=== PATIENT | female | born 1995 | race Asian ===

== ENCOUNTER 2020-08-17 05:45 | Outpatient (CLI) | payer OTHER, SELFPAY | END 2020-08-17 06:26 | disposition home or self-care (01) | LOC: LABOR 06:19 → OB 08-18 07:16 | PROVIDERS: Referring Provider Nurse Practitioner Obstetrics & Gynecology; Visit Provider Nurse Practitioner Obstetrics & Gynecology | DX: O20.9 Hemorrhage in early pregnancy, unspecified (principal); O24.414 Gestational diabetes mellitus in pregnancy, insulin controlled; Z3A.18 18 weeks gestation of pregnancy | CPT/HCPCS: G0378; G0379 ==

== ENCOUNTER 2020-10-18 15:58 | Outpatient (CLI) | payer OTHER, SELFPAY ==
--- NOTE | 2020-10-18 17:41 | P.TNLD_ITS ---
Visit Information Visit Information Date of evaluation: 10/18/20 On-call OB Provider: Abbi Velazquez Reason for Evaluation: Yes other Comments/Additional reasons for admission: Bleeding at 27week 5days. Review of Systems Review of Systems Narrative: Patient states that she has been having spotting since 20 weeks after intercourse. Her has been deployed now for 2 weeks and she began having spotting and a little more blood when she wiped today after urinating. She comes in for evaluation. She denies any abdominal pain. No fevers. Good movement. No contractions. Patient is a diabetic on insulin and metformin. She gets her care at [facility]. Exam Vital Signs (past 8 hours): Blood pressure 110/74, pulse of 100, Narrative Exam Narrative: Patient's abdomen is soft, nontender. Normal external genital. Speculum shows normal vagina with a marsh discharge that has an odor. Cervix is friable. Cervix appears closed. On vaginal exam the cervix appears to be firm, long, presenting part is high. Exam was performed after confirming by prior ultrasound obtained from her OB clinic that she does not have a previa. On wet prep and BOUCHRA there are no yeast but obvious clue cells. The odor also confirms she has BV. Evaluation Evaluation Baseline heart rate: 155 Variability: Average (6-10) monitor accelerations: Absent Monitor Decelerations: Absent Contraction Frequency (minutes): 0 Status: Category l Cervical dilation (cm): 0 Cervical effacement (%): 0 station: -4 Diagnosis, Plan/Disposition Final Diagnosis (1) Bacterial vaginosis: Status: Acute (2) 29 weeks gestation of : Status: Acute Plan/Disposition Plan: Patient with vaginal bleeding appears to be from cervical irritation from bacterial vaginosis. Prescription for Flagyl sent to her pharmacy. Patient is to follow-up with her primary OB provider. OB Disposition: home
== END 2020-10-18 17:45 | disposition home or self-care (01) ==
LOC: LABOR 17:40 → OB 10-20 10:37
PROVIDERS: Referring Provider Specialist; Visit Provider Specialist
DX: O26.852 Spotting complicating pregnancy, second trimester (principal); O23.593 Infection of other part of genital tract in pregnancy, third trimester; Z3A.29 29 weeks gestation of pregnancy
CPT/HCPCS: 59025; G0378; G0379

== ENCOUNTER 2021-01-18 23:12 | Inpatient (IN) | payer OTHER, SELFPAY ==
--- NOTE | 2021-01-18 23:31 | DI.US.S_ITS ---
PROCEDURE: US PELVIC COMPLETE INDICATIONS: PAIN, SEPSIS 2 WEEKS POST TECHNIQUE: Real-time scanning was performed of the pelvic organs, with image documentation. Additional endovaginal scanning was necessary due to incomplete visualization of the adnexal and endometrial structures by transabdominal scanning. COMPARISON: None. FINDINGS: Uterus: Uterus is anteverted and measures 11.5 x 5.2 x 9.1 cm. There is a small amount of endometrial fluid with internal echoes demonstrated. No discrete internal solid component or vascularity demonstrated within the endometrial canal. The endometrial contours appear slightly lobulated. Ovaries: The right ovary measures 3.6 x 1.6 x 1.7 cm. The left ovary was not visualized. No adnexal masses identified. Other: A small amount of free fluid is demonstrated in the pelvis which appears within physiologic limits. IMPRESSION: 1. Small amount of endometrial fluid with internal echoes demonstrated as well as a slightly lobulated appearance of the endometrial contours. The findings are nonspecific and are suggestive of blood products, but the differential includes endometritis. Although no discrete solid filling defects or vascularity are demonstrated in the endometrium, retained products of conception cannot be excluded. Dictated by: Prashant Rangel M.D. on 01/19/2021 at 8:50 Approved by: Prashant Rangel M.D. on 01/19/2021 at 8:55
[2021-01-18 23:32] VITALS: BP 116/55; PULSE 82; RESP 17; TEMP 38.5; O2SAT 97; BMI 34.9
--- NOTE | 2021-01-18 23:32 | DI.RAD.S_ITS ---
PROCEDURE: XR CHEST 1V INDICATIONS: cough, fever TECHNIQUE: One view of the chest was acquired. COMPARISON: None. FINDINGS: Surgical changes and devices: None. Lungs and pleura: There are ill-defined patchy ground-glass opacities within the lung bases, left greater than right. There is possible blunting of the left costophrenic angle which may represent a small pleural effusion versus pleural thickening. No pneumothorax. Mediastinum: Mediastinal contours appear normal. Heart size is normal. Bones and chest wall: No suspicious bony lesions. Overlying soft tissues appear unremarkable. IMPRESSION: 1. Patchy indistinct ground-glass opacities in the lung bases, left greater than right. Findings are nonspecific but suggestive of atypical pneumonia. Dictated by: Prashant Rangel M.D. on 01/19/2021 at 8:48 Approved by: Prashant Rangel M.D. on 01/19/2021 at 8:50
[2021-01-18 23:48] VITALS: PULSE 69; O2SAT 97
[2021-01-19] VITALS (16 sets, daily range): BP systolic 117–133; BP diastolic 61–71; PULSE 69–88; RESP 16–30; TEMP 35.8–37.7; O2SAT 96–98; BMI 34.9
[2021-01-19 00:04] LABS: COVID19 -Nasal RAPID Negative (Negative)
[2021-01-19 00:23] LABS: Lactate (Lactic Acid) 0.8 mmol/L (0.7-2.1)
[2021-01-19 00:24] LABS: Alanine Aminotransferase 29 IU/L (<35); Albumin Globulin Ratio 0.9 (1.0-2.8); Alkaline Phosphatase 103 U/L (38-126); Aspartate Aminotransferase 22 IU/L (14-36); BUN Creatinine Ratio 18.8 (6-22); Bilirubin Total 0.5 mg/dL (0.2-1.3); Blood Urea Nitrogen 12 mg/dL (7-17); Calcium 8.2 mg/dL (8.4-10.2); Carbon Dioxide 22 mmol/L (22-32); Chloride 107 mmol/L (98-107); Estimated Glomerular Filt Rate > 60.0 mL/min (>60); Globulin 3.2 g/dL (1.7-4.1); Glucose 110 mg/dL (70-100); HEMOLYSIS < 15 (0-50); Potassium 2.8 mmol/L (3.4-5.1); Sodium 138 mmol/L (137-145); Total Protein 6.2 g/dL (6.3-8.2)
[2021-01-19 00:28] LABS: Add Manual Diff / Slide Review NO; Basophils Absolute Auto 100 /uL (0-100); Basophils Percent Auto 0.2 % (0-2); Eosinophils Absolute Auto 700 /uL (0-450); Eosinophils Percent Auto 3.2 % (2-4); Hematocrit 31.2 % (36-46); Hemoglobin 9.9 g/dL (12.0-16.0); Lymphocytes Absolute Auto 1300 /uL (1100-4500); Lymphocytes Percent Auto 5.8 % (25-40); Mean Corpuscular HGB Conc 31.7 % (30-36); Mean Corpuscular Hemoglobin 27.7 PG (26-34); Mean Corpuscular Volume 87.2 fL (80-100); Monocytes Absolute Auto 700 /uL (0-900); Neutrophils Absolute Auto 20200 /uL (1500-7000); Neutrophils Percent Auto 87.8 % (50-75); Platelet Count 309 X10^3/uL (150-400); Red Blood Cell Count 3.57 X10^6/uL (4.0-5.2); Red Cell Distribution Width 13.6 % (11.6-14.8)
[2021-01-19] MEDS: LACTATED RINGERS 1,000 ML 1000 ML IV (00:30)
--- NOTE | 2021-01-19 00:32 | ED.FEVER ---
HPI - Fever General Chief Complaint: Fever Stated Complaint: coughing,chills, body aches Time Seen by Provider: 01/18/21 23:20 Source: patient Mode of arrival: Ambulatory Limitations: no limitations History of Present Illness HPI Narrative: 25-year-old female nonsmoker with no significant medical history presents with her significant other and with a chief complaint of fever as high as 103 at home. She complains of generalized symptoms including nasal congestion some dry cough and body aches. She denies any significant sore throat or difficulty breathing. She denies nausea, vomiting or diarrhea. She denies any dysuria, frequency or urgency. She has very minimal vaginal bleeding. She delivered 2 weeks ago a healthy full-term vaginally without complication at [place] Related Data Previous Rx's Medication Instructions Recorded metronidazole 500 mg tablet 500 mg PO BID #14 tab 10/18/20 Allergies Allergy/AdvReac Type Severity Reaction Status Date / Time amoxicillin Allergy Anaphylaxis Verified 01/18/21 23:32 Review of Systems Review of Systems Narrative: GENERAL: See HPI HEENT: See HPI RESPIRATORY: D see HPI CARDIOVASCULAR: Denies chest pain, palpitations, orthopnea, edema, GASTROINTESTINAL: Denies nausea, vomiting, abdominal pain, diarrhea, constipation, melena. : Denies dysuria, frequency, incontinence, hematuria, urinary retention. MUSCULOSKELETAL: denies weakness, joint pain, or bony pain SKIN: Denies rash, skin lesions, or other NEUROLOGIC: Denies weakness, headache, numbness, change in speech, confusion, seizures, incoordination. PSYCHIATRIC: No concerning psychosocial issues. 12 point review of systems is negative except for those stated above Patient History Social History Smoking Status: Never smoker Smoking Status: Never smoker Substance Use Type: does not use Exam Narrative Exam Narrative: GENERAL: [25] year old patient appears stated age. Well-developed patient, in mild distress. HEAD: Atraumatic. Normocephalic. EYES: Pupils equal round and reactive. Extraocular motions intact. No scleral icterus. No injection or drainage. ENT: Nose without bleeding, purulent drainage. Throat without erythema, tonsillar hypertrophy or exudate. Airway patent. NECK: Trachea midline. Non tender CARDIOVASCULAR: Regular rate and rhythm without murmurs, gallops, or rubs. RESPIRATORY: Clear to auscultation. Breath sounds equal bilaterally. No wheezes, rales, or rhonchi. GASTROINTESTINAL: Abdomen soft, mild suprapubic tenderness, nondistended. EXTREMITIES: No edema or joint tenderness. BACK: Nontender without deformity or crepitance. No flank tenderness. NEURO: AOx3. SKIN: No rash or erythema of visible areas Initial Vital Signs Initial Vital Signs: Vital Signs Temperature 101.3 F H 01/18/21 23:32 Pulse Rate 82 01/18/21 23:32 Respiratory Rate 17 01/18/21 23:32 Blood Pressure 116/55 L 01/18/21 23:32 Pulse Oximetry 97 01/18/21 23:32 Course Orders Ordered: ED Orders 01/18/21 23:31 US pelvic complete Stat 01/18/21 23:32 XR chest 1V Stat 01/18/21 23:40 COVID19 -Nasal swab/Pre-Proc Stat 01/18/21 23:50 Blood Culture Stat 01/18/21 23:55 Complete Blood Count AUTO DIFF Stat Comprehensive Metabolic Panel Stat Lactate (Lactic Acid) Stat 01/19/21 01:35 Urine Culture Stat 01/19/21 01:37 Urine Microscopic Stat POTASSIUM CHLORIDE IN WATER (Potassium Cl 10 Meq/100 Ml Isabelle) 10 meq in 100 mls @ 100 mls/hr IV Q1H SHAJI Stop: 01/19/21 04:44 Last Admin: 01/19/21 01:51 Dose: 100 mls/hr Documented by: Infusion: 01/19/21 01:50 Dose: 0 mls/hr Documented by: Admin: 01/19/21 00:42 Dose: 100 mls/hr Documented by: RAMY Clindamycin Phosphate (Cleocin) 900 mg in 50 mls @ 50 mls/hr IV Q8H SHAJI Discontinued Medications Lactated Ringer's (Lactated Ringers) 1,000 mls @ 1,000 mls/hr IV BOLUS ONE Stop: 01/19/21 00:30 Last Infusion: 01/19/21 01:48 Dose: 0 mls/hr Documented by: Admin: 01/19/21 00:30 Dose: 1,000 mls/hr Documented by: SAMI Potassium Chloride (Potassium Chloride 20 Meq/15 Ml Udc) 40 meq PO NOW ONE Stop: 01/19/21 00:33 Last Admin: 01/19/21 00:41 Dose: 40 meq Documented by: RAMY Brown Consultation #1: discussed with Dr. Dye, recommends tx of endometritis with Clinda/Gent. Requests admission to L&D. Vital Signs Vital signs: Vital Signs - 8 hr 01/18/21 23:32 01/18/21 23:48 01/19/21 00:47 Temperature 101.3 F H Pulse Rate 82 69 69 Respiratory Rate 17 30 H Blood Pressure 116/55 L Pulse Oximetry 97 97 01/19/21 01:00 01/19/21 01:30 Temperature 99 F Pulse Rate 71 74 Respiratory Rate 26 H 25 H Blood Pressure Pulse Oximetry 97 MDM - Fever Lab Data Result diagrams: 01/18/21 23:55 01/18/21 23:55 Labs: Lab Results 01/18/21 01/18/21 01/18/21 Range/Units 23:40 23:55 23:55 WBC 23.0 H (4.5-11.0) X10^3/uL RBC 3.57 L (4.0-5.2) X10^6/uL Hgb 9.9 L (12.0-16.0) g/dL Hct 31.2 L (36-46) % MCV 87.2 (80-100) fL MCH 27.7 (26-34) PG MCHC 31.7 (30-36) % RDW 13.6 (11.6-14.8) % Plt Count 309 (150-400) X10^3/uL Neut % (Auto) 87.8 H (50-75) % Lymph % (Auto) 5.8 L (25-40) % [place] % (Auto) 3.0 (3-14) % Eos % (Auto) 3.2 (2-4) % Baso % (Auto) 0.2 (0-2) % Neut # (Auto) 05566 H (9690-4969) /uL Lymph # (Auto) 1300 (8003-7292) /uL [place] # (Auto) 700 (0-900) /uL Eos # (Auto) 700 H (0-450) /uL Baso # (Auto) 100 (0-100) /uL Sodium 138 (137-145) mmol/L Potassium 2.8 L (3.4-5.1) mmol/L Chloride 107 (98-107) mmol/L Carbon Dioxide 22 (22-32) mmol/L BUN 12 (7-17) mg/dL Creatinine 0.64 (0.52-1.04) mg/dL Estimated GFR > 60.0 (>60) mL/min BUN/Creatinine Ratio 18.8 (6-22) Glucose 110 H (70-100) mg/dL Lactate (0.7-2.1) mmol/L Calcium 8.2 L (8.4-10.2) mg/dL Total Bilirubin 0.5 (0.2-1.3) mg/dL AST 22 (14-36) IU/L ALT 29 (<35) IU/L Alkaline Phosphatase 103 (38-126) U/L Total Protein 6.2 L (6.3-8.2) g/dL Albumin 3.0 L (3.5-5.0) g/dL Globulin 3.2 (1.7-4.1) g/dL Albumin/Globulin Ratio 0.9 L (1.0-2.8) Urine RBC (0-5/HPF) Urine WBC (0-5/HPF) Ur Squamous Epith Cells (0-5/HPF) Urine Bacteria (None) Urine Mucus (Negative) Ur Culture Indicated? SARS-CoV-2 (PCR) Negative (Negative) 01/18/21 01/19/21 Range/Units 23:55 01:35 WBC (4.5-11.0) X10^3/uL RBC (4.0-5.2) X10^6/uL Hgb (12.0-16.0) g/dL Hct (36-46) % MCV (80-100) fL MCH (26-34) PG MCHC (30-36) % RDW (11.6-14.8) % Plt Count (150-400) X10^3/uL Neut % (Auto) (50-75) % Lymph % (Auto) (25-40) % [place] % (Auto) (3-14) % Eos % (Auto) (2-4) % Baso % (Auto) (0-2) % Neut # (Auto) (2708-9145) /uL Lymph # (Auto) (6507-5362) /uL [place] # (Auto) (0-900) /uL Eos # (Auto) (0-450) /uL Baso # (Auto) (0-100) /uL Sodium (137-145) mmol/L Potassium (3.4-5.1) mmol/L Chloride (98-107) mmol/L Carbon Dioxide (22-32) mmol/L BUN (7-17) mg/dL Creatinine (0.52-1.04) mg/dL Estimated GFR (>60) mL/min BUN/Creatinine Ratio (6-22) Glucose (70-100) mg/dL Lactate 0.8 (0.7-2.1) mmol/L Calcium (8.4-10.2) mg/dL Total Bilirubin (0.2-1.3) mg/dL AST (14-36) IU/L ALT (<35) IU/L Alkaline Phosphatase (38-126) U/L Total Protein (6.3-8.2) g/dL Albumin (3.5-5.0) g/dL Globulin (1.7-4.1) g/dL Albumin/Globulin Ratio (1.0-2.8) Urine RBC 1-5/hpf (0-5/HPF) Urine WBC 10-30/hpf H (0-5/HPF) Ur Squamous Epith Cells 0-1 /hpf (0-5/HPF) Urine Bacteria None seen (None) Urine Mucus 1+ H (Negative) Ur Culture Indicated? Specimen cultured SARS-CoV-2 (PCR) (Negative) Urine Dip Bedside Urine Glucose Negative Bedside Urine Bilirubin - Negative Bedside Urine Ketone + 15 Urine Specific [place] 1.030 Bedside Urine Occult Blood +++ Bedside Urine pH 6.0 Bedside Urine Protein ++ 100 Bedside Urine Urobilinogen - Negative Bedside Urine Nitrite - Negative Bedside Urine Leukocytes +/- 15 Esterase Imaging Data US - ROVING DEPARTMENT END FINDER: Radiologist's Impression: Complex fluid in endometrial cavity without hyperemia probably hemorrhage. Endometritis or retained parts of conception less likely but not entirely excluded. Follow-up recommendation as clinically indicated Chest x-ray: Radiologist's Impression: Questionable small left pleural effusion. No active infiltrate evident MDM Narrative Medical decision making narrative: Patient with recent delivery of healthy child, presents with fever of 103 and bodyaches. She has minimal symptoms. Mild vaginal / suprapubic discomfort. Denies any urine symptoms. Given presentation, ultrasound, fever, WBCs 23k will admit for IV ABX and close monitoring. Urine POC shows only protein and blood. UA shows 10-30 WBCs, but patient has zero urinary symptoms. Discharge Plan Departure Patient Disposition: Admitted As Inpatient Clinical Impression: Endometritis following delivery Admit Date/Time: 01/19/21 01:59 Admit Provider: Jasmin Dye
[2021-01-19] MEDS: POTASSIUM CHLORIDE 20 MEQ/15 ML UDC 40 MEQ PO (00:41)
[2021-01-19] MEDS: POTASSIUM CHLORIDE IN WATER 10 MEQ/100 ML PIGGYBACK 100 MEQ IV ×4 (00:42→04:30)
[2021-01-19 01:57] LABS: Bacteria Urine None Seen; Culture Indicated Urine Specimen Cultured; Mucus Urine 1+ (Negative); RBC Urine 1-5/HPF (0-5/HPF); Squamous Epithelial Cell Urine 0-1 /HPF (0-5/HPF); WBC Urine 10-30/HPF (0-5/HPF)
[2021-01-19] MEDS: SODIUM CHLORIDE 0.9% 1,000 ML 125 ML IV ×3 (03:19→18:55)
[2021-01-19] MEDS: CLINDAMYCIN 900 MG/50 ML PIGGYBACK 50 MG IV ×3 (03:20→17:42)
[2021-01-19] MEDS: GENTAMICIN 340 MG in SODIUM CHLORIDE 0.9% 100 ML 108.5 ML IV (04:28)
--- NOTE | 2021-01-19 04:44 | PC.NURSE ---
approx. 0230- Patient arrived in stable condition from the ER via wheelchair with her and spouse. Patient has two peripheral IV sites, one in the left forearm and one in the right arm below the AC. Both IV sites are unremarkable. This RN discussed the plan of care with the patient. She has no questions or concerns at this time.
--- NOTE | 2021-01-19 07:30 | PC.NURSE ---
taken over care of patient. states she is feeling better, Blood sugar done 99. IV sites patent Nil redness or swelling noted, Vital signs done
--- NOTE | 2021-01-19 08:30 | PC.NURSE ---
medication given as prescribed
--- NOTE | 2021-01-19 08:56 | PM.HP.1 ---
History of Present Illness History of Present Illness Date Patient Seen: 01/19/21 Time Patient Seen: 08:30 Chief complaint: coughing,chills, body aches Narrative: Pt is a 25yo PPD # 14 s/p complicated by retained membranes requiring bimanual extraction and hemorrhage requiring bimanual massage, methergine, and TXA with EBL of 800cc. The pt had undergone IOL at 39w0d due to type 2 DM. The pt reports that she had been feeling well at home, until 2 nights ago when she developed body aches and chills. Yesterday morning, she had mild intermittent abdominal pain, that was different from cramping. This persisted throughout the day, and did not seem to be associated with eating. She continued to have body aches and chills, and took her temperature last night and it was 103F. She then came to the ED for evaluation. The pt is currently exclusively pumping to feed her . She denies any significant breast pain or warmth, but does not that her left breast is slightly firm today. She denies any SOB, cough, pelvic pain, abnormal vaginal discharge. She is having regular BMs. She denies any dysuria. She denies any nasal congestion, sore throat, ear pain. PMH: Type 2 DM - diagnosed as a teenager, was told she was Type 1.5. On Metformin 1,000mg BID Depression/Anxiety - Stable, on Lexapro 10mg, Clonidine 0.2mg nightly Patient History Family & Social History Social History: household members spouse Prior Living Arrangements House Safety & Behavioral: Feels Safe in Current Yes Environment Suicidal Ideation Description None Tobacco & Substance use: Smoking Status Never smoker alcohol intake never Substance Use Type does not use Meds Home Medications and Allergies Home Medications Medication Instructions Recorded Confirmed Type clonidine HCl 0.2 mg tablet mg 01/19/21 History escitalopram oxalate 10 mg tablet mg 01/19/21 History metformin 500 mg tablet,extended mg PO 01/19/21 History release 24 hr Allergies Allergy/AdvReac Type Severity Reaction Status Date / Time amoxicillin Allergy Anaphylaxis Verified 01/18/21 23:32 Exam Vital Signs (past 8 hours): - 01/19/21 01:00 01/19/21 01:30 01/19/21 02:00 Temperature 99 F Pulse Rate 71 74 72 Respiratory Rate 26 H 25 H 26 H Blood Pressure Pulse Oximetry 97 98 01/19/21 02:35 01/19/21 06:15 Temperature 97.7 F 98.3 F Pulse Rate 76 80 Respiratory Rate 22 20 Blood Pressure 125/61 119/69 Pulse Oximetry 98 98 Oxygen Delivery Method Room Air Narrative Exam Narrative: Gen: NAD, sitting comfortably on bench, appears well Neck: no LAD CV: RRR, no murmurs Resp: clear to auscultation bilaterally Abd: soft, nondistended, nontender, normoactive bowel sounds, fundus quite firm and well below umbilicus Breast: left breast slightly firm but no significant tenderness or warmth Ext: no edema Objective Labs Result Diagrams: 01/18/21 23:55 01/18/21 23:55 Labs: Laboratory Results - last 24 hr 01/18/21 01/18/21 01/18/21 23:40 23:55 23:55 WBC 23.0 H RBC 3.57 L Hgb 9.9 L Hct 31.2 L MCV 87.2 MCH 27.7 MCHC 31.7 RDW 13.6 Plt Count 309 Neut % (Auto) 87.8 H Lymph % (Auto) 5.8 L [place] % (Auto) 3.0 Eos % (Auto) 3.2 Baso % (Auto) 0.2 Neut # (Auto) 00146 H Lymph # (Auto) 1300 [place] # (Auto) 700 Eos # (Auto) 700 H Baso # (Auto) 100 Sodium 138 Potassium 2.8 L Chloride 107 Carbon Dioxide 22 BUN 12 Creatinine 0.64 Estimated GFR > 60.0 BUN/Creatinine Ratio 18.8 Glucose 110 H Lactate Calcium 8.2 L Total Bilirubin 0.5 AST 22 ALT 29 Alkaline Phosphatase 103 Total Protein 6.2 L Albumin 3.0 L Globulin 3.2 Albumin/Globulin Ratio 0.9 L Urine RBC Urine WBC Ur Squamous Epith Cells Urine Bacteria Urine Mucus Ur Culture Indicated? SARS-CoV-2 (PCR) Negative 01/18/21 01/19/21 23:55 01:35 WBC RBC Hgb Hct MCV MCH MCHC RDW Plt Count Neut % (Auto) Lymph % (Auto) [place] % (Auto) Eos % (Auto) Baso % (Auto) Neut # (Auto) Lymph # (Auto) [place] # (Auto) Eos # (Auto) Baso # (Auto) Sodium Potassium Chloride Carbon Dioxide BUN Creatinine Estimated GFR BUN/Creatinine Ratio Glucose Lactate 0.8 Calcium Total Bilirubin AST ALT Alkaline Phosphatase Total Protein Albumin Globulin Albumin/Globulin Ratio Urine RBC 1-5/hpf Urine WBC 10-30/hpf H Ur Squamous Epith Cells 0-1 /hpf Urine Bacteria None seen Urine Mucus 1+ H Ur Culture Indicated? Specimen cultured SARS-CoV-2 (PCR) Assessment & Plan Assessment & Plan narrative: Pt is a 25yo PPD # 14 s/p complicated by retained membranes requiring bimanual extraction and hemorrhage requiring bimanual massage, methergine, and TXA with EBL of 800cc. The pts WBC count was found to be significantly elevated, and pelvic ultrasound consistent with possible blood products vs endometritis. No signs/symptoms of alternative etiology, and endometritis most likely. Pt did have bimanual massage after delivery as risk factor. 1) Endometritis: - Continue Clindamycin and Gentamicin - Tylenol PRN for fever - Can discharge after no fever for 24hrs - Consider repeat u/s tomorrow morning to ensure no remaining concer for retained products, will discuss with HUMAN RESOURCES ASSISTANT - F/U blood cultures 2) Type 2 DM: - ACHS blood sugars - Continue home Metformin, no evidence of sepsis 3) Depression/Anxiety: - Continue home Lexapro, Clonidine FEN: General diet DVT ppx: SCDs Code: Full Dispo: Pending afebrile x 24hrs. Hopeful for tomorrow morning. Quality VTE Deep Vein Thrombosis/Pulmonary Embolism Present on Admission: No
[2021-01-19] MEDS: IBUPROFEN 400 MG TABLET PO (09:06)
[2021-01-19] MEDS: ACETAMINOPHEN 325 MG TABLET 650 MG PO ×2 (09:08→20:16)
--- NOTE | 2021-01-19 09:10 | PC.NURSE ---
Ibuprofen and Tylenol given as ordered for pain, Fundus firm below Bleeding is minimal.
[2021-01-19] MEDS: METFORMIN HCL 500 MG TABLET 1000 MG PO ×2 (09:33→20:17)
--- NOTE | 2021-01-19 10:37 | PC.NURSE ---
patient resting woke up sweating Temp 99.7
--- NOTE | 2021-01-19 10:40 | PC.NURSE ---
prenatals received from Mihai ornelas
--- NOTE | 2021-01-19 11:11 | PC.NURSE ---
denies any complaints at this time Antibiotics given as ordered
--- NOTE | 2021-01-19 14:02 | CM.MNRNOTE ---
denies any complaints at this time IV remains patent nil redness or swelling noted
--- NOTE | 2021-01-19 14:03 | PC.NURSE ---
denies feeling any ppain at this time. Lochia is minimal
--- NOTE | 2021-01-19 17:56 | PC.NURSE ---
174 clindamycin bao,Normal saline infusing,R.side IV. Patient comforable denies an pain or discomfort.Afebrile.Has visitors
[2021-01-19] MEDS: IBUPROFEN 600 MG TABLET PO (20:18)
[2021-01-19] MEDS: ESCITALOPRAM 10 MG TABLET PO (21:12)
[2021-01-19] MEDS: cloNIDine 0.1 MG TABLET 0.2 MG PO (21:12)
--- NOTE | 2021-01-19 23:35 | PC.NURSE ---
Addendum entered by Graciela Asif R.N. 01/20/21 06:58: 0500- patient resting in bed. Has no complaints at this time. Addendum entered by Graciela Asif R.N. 01/20/21 02:31: 0120-Patient sitting up in bed using breast pump. She states that she is feeling a dull cramping in her upper abd area. Pt was offered a warm blanket which she states makes it feel better. Will continue to monitor. Original Note: 1999- Patient states she is feeling much better. Both IV remain in place and patent.
[2021-01-20 01:45] VITALS: BP 117/71; PULSE 81; RESP 20; TEMP 35.8; O2SAT 98
[2021-01-20] MEDS: CLINDAMYCIN 900 MG/50 ML PIGGYBACK 50 MG IV ×2 (01:52→09:46)
[2021-01-20] MEDS: ACETAMINOPHEN 325 MG TABLET 650 MG PO ×2 (02:01→08:23)
[2021-01-20] MEDS: IBUPROFEN 600 MG TABLET PO ×2 (02:02→08:22)
[2021-01-20] MEDS: SODIUM CHLORIDE 0.9% 1,000 ML 125 ML IV (02:54)
[2021-01-20] MEDS: GENTAMICIN 340 MG in SODIUM CHLORIDE 0.9% 100 ML 108.5 ML IV (03:02)
[2021-01-20 06:55] LABS: Add Manual Diff / Slide Review NO; Basophils Absolute Auto 0 /uL (0-100); Basophils Percent Auto 0.2 % (0-2); Eosinophils Absolute Auto 900 /uL (0-450); Eosinophils Percent Auto 6.3 % (2-4); Hematocrit 27.4 % (36-46); Hemoglobin 8.8 g/dL (12.0-16.0); Lymphocytes Absolute Auto 2200 /uL (1100-4500); Lymphocytes Percent Auto 15.7 % (25-40); Mean Corpuscular HGB Conc 32.2 % (30-36); Mean Corpuscular Hemoglobin 28.3 PG (26-34); Mean Corpuscular Volume 87.9 fL (80-100); Monocytes Absolute Auto 1000 /uL (0-900); Monocytes Percent Auto 6.8 % (3-14); Neutrophils Absolute Auto 10100 /uL (1500-7000); Platelet Count 256 X10^3/uL (150-400); Red Blood Cell Count 3.12 X10^6/uL (4.0-5.2); Red Cell Distribution Width 14.1 % (11.6-14.8); White Blood Cell Count 14.2 X10^3/uL (4.5-11.0)
--- NOTE | 2021-01-20 07:05 | P.DS_ITS ---
History of Present Illness History of Present Illness Date Patient Seen: 01/20/21 Chief complaint: coughing,chills, body aches Narrative: Pt is a 25yo PPD # 14 s/p complicated by retained membranes requiring bimanual extraction and hemorrhage requiring bimanual massage, methergine, and TXA with EBL of 800cc. The pt had undergone IOL at 39w0d due to type 2 DM. The pt reports that she had been feeling well at home, until 2 nights ago when she developed body aches and chills. Yesterday morning, she had mild intermittent abdominal pain, that was different from cramping. This persisted throughout the day, and did not seem to be associated with eating. She continued to have body aches and chills, and took her temperature last night and it was 103F. She then came to the ED for evaluation. The pt is currently exclusively pumping to feed her . She denies any significant breast pain or warmth, but does not that her left breast is slightly firm today. She denies any SOB, cough, pelvic pain, abnormal vaginal discharge. She is having regular BMs. She denies any dysuria. She denies any nasal congestion, sore throat, ear pain. PMH: Type 2 DM - diagnosed as a teenager, was told she was Type 1.5. On Metformin 1,000mg BID Depression/Anxiety - Stable, on Lexapro 10mg, Clonidine 0.2mg nightly Discharge Providers Provider Date of admission: 01/19/21 01:59 Discharge Date: 01/20/21 Discharge provider: Jasmin Dye MD Summary Hospital Course Discharge Diagnosis: Endometritis Hospital Course: The patient was admitted with fever and symptoms most consistent with endometritis she was continued on clindamycin and gentamicin for over 24 hours. The patient remained afebrile throughout her hospitalization. Her white blood cell count improved significantly. The patient continued to pump during her hospitalization. Her blood sugars remained adequate range. She was discharged home with instructions to complete a 7 day total course of antibiotics due to her white blood cell count not being completely normalized. We will have her repeat a pelvic ultrasound in 1 week to ensure the potential blood products seen in the uterus are not retained products. The patient will follow-up with her primary OB for her regularly scheduled 6 week check. Status at Discharge Cognitive/behavioral status at discharge: oriented Functional status at discharge: independent ambulation Overall status at discharge: patient is back to baseline Exam Vital Signs (past 8 hours): - 01/20/21 01:45 Temperature 96.4 F L Pulse Rate 81 Respiratory Rate 20 Blood Pressure 117/71 Pulse Oximetry 98 Oxygen Delivery Method Room Air Narrative Exam Narrative: Gen: NAD, sitting comfortably on bench, appears well Neck: no LAD CV: RRR, no murmurs Resp: clear to auscultation bilaterally Abd: soft, nondistended, nontender, normoactive bowel sounds, fundus quite firm and well below umbilicus Breast: left breast slightly firm but no significant tenderness or warmth Ext: no edema Objective Labs Result Diagrams: 01/20/21 06:30 01/20/21 06:30 Labs: Laboratory Results - last 24 hr 01/20/21 06:30 WBC 14.2 H RBC 3.12 L Hgb 8.8 L Hct 27.4 L MCV 87.9 MCH 28.3 MCHC 32.2 RDW 14.1 Plt Count 256 Neut % (Auto) 71.0 Lymph % (Auto) 15.7 L Campbell % (Auto) 6.8 Eos % (Auto) 6.3 H Baso % (Auto) 0.2 Neut # (Auto) 44588 H Lymph # (Auto) 2200 Campbell # (Auto) 1000 H Eos # (Auto) 900 H Baso # (Auto) 0 PFSH Social History household members: spouse Smoking Status: Never smoker alcohol intake: never Discharge Plan Discharge Plan Patient Disposition: Home Discharge orders & Medications Prescriptions: New clindamycin HCl 300 mg capsule 300 mg PO TID Qty: 21 RF: 0 Continued metformin 500 mg tablet extended release 24 hr 500 mg PO BID RF: 0 clonidine HCl 0.2 mg tablet 0.2 mg PO QPM RF: 0 escitalopram oxalate 10 mg tablet 10 mg PO BEDTIME RF: 0 Follow up/Referrals: Imani Mccall MD [Non-Staff] - Jasmin Dye MD [Physician] - (Please follow up with Dr. Mccall on If you have any questions/concerns or need to reschedule please call .) Diet/Activity/Treatments Diet: Regular Skin/Wound/Dressing Care Report to your healthcare provider any signs of infection, such as:: chills, fever, increased pain and unusual drainage Visit Report/Discharge Packet Instructions: DI for Endometritis Visit Report Forms: Patient Portal/API, Stroke Signs & Symptoms Discharges patient from system. Discharge Date/Time: 01/20/21 12:13 Quality VTE Deep Vein Thrombosis/Pulmonary Embolism Present on Admission: No
[2021-01-20 07:07] LABS: Blood Urea Nitrogen 11 mg/dL (7-17); Calcium 8.2 mg/dL (8.4-10.2); Carbon Dioxide 18 mmol/L (22-32); Chloride 111 mmol/L (98-107); Estimated Glomerular Filt Rate > 60.0 mL/min (>60); Glucose 87 mg/dL (70-100); HEMOLYSIS < 15 (0-50); Potassium 3.5 mmol/L (3.4-5.1); Sodium 138 mmol/L (137-145)
[2021-01-20 08:06] VITALS: BP 122/81; PULSE 51; RESP 18; TEMP 36.1
[2021-01-20 08:22] VITALS: TEMP 36.1
[2021-01-20 08:23] VITALS: TEMP 36.1
[2021-01-20] MEDS: METFORMIN HCL 500 MG TABLET 1000 MG PO (08:23)
== END 2021-01-20 12:13 | disposition home or self-care (01) | DRG 760 ==
LOC: ED 01-19 01:09 → LABOR 01-19 02:00
PROVIDERS: Admitting Provider Family Medicine; Emergency Provider Emergency Medicine; Referring Provider Emergency Medicine; Visit Provider Family Medicine
DX: N80.9 Endometriosis, unspecified (principal); O86.4 Pyrexia of unknown origin following delivery; E11.9 Type 2 diabetes mellitus without complications; Z79.84 Long term (current) use of oral hypoglycemic drugs; F32.9 Major depressive disorder, single episode, unspecified; F41.9 Anxiety disorder, unspecified; Z20.822 Contact with and (suspected) exposure to COVID-19
CPT/HCPCS: 36415; 71045; 76830; 76856; 80048; 80053; 81003; 81015; 82962; 83605; 85025; 87040; 87086; 87635; 99222; 99238; 99285; C9803